=== PATIENT | male | born 1955 | race Caucasian/White ===

== ENCOUNTER 2022-06-09 08:31 | Emergency (ER) | payer SELFPAY ==
[2022-06-09 09:33] LABS: #Lymphocytes 0.6 thou/uL (1.20-3.40); #Monocytes 0.6 thou/uL (0.11-0.59); #Neutrophils 5.8 thou/uL (1.40-6.50); %Basophils 0.1 % (0.0-1.0); %Eosinophils 0.5 % (0.0-10.0); %Lymphocytes 8.1 % (21.0-51.0); %Monocytes 8.5 % (0.0-10.0); %Neutrophils 82.8 % (42.0-75.0); Mean Corpuscular HGB CONC 31.9 g/dL (32.0-36.0); Mean Corpuscular Hemoglobin 34.9 pg (27.0-31.0); Mean Platelet Volume 6.3 fL (7.4-10.4); Platelet Count 321 10x3/uL (130-400); RBC Distribution Width 15.3 % (11.5-14.5); Red Blood Cell (RBC) Count 3.15 mill/uL (4.70-6.10)
[2022-06-09 09:49] LABS: ALT (SGPT) 16 U/L (8-55); AST (SGOT) 18 U/L (5-34); Albumin 2.8 g/dL (3.4-4.8); Alkaline Phosphatase 90 U/L (40-110); Anion Gap 13 mmol/L (10-20); BUN (Urea Nitrogen) 11 mg/dL (8.4-25.7); Bilirubin, Total 0.5 mg/dL (0.2-1.2); Calc. Creatinine Clearance 0 mL/min (70-130); Calcium 9.5 mg/dL (7.8-10.44); Carbon Dioxide 26 mmol/L (23-31); Chloride 106 mmol/L (98-107); Estimated GFR 98; Globulin 4.4 g/dL (2.4-3.5); Glucose 82 mg/dL (80-115); Potassium 3.9 mmol/L (3.5-5.1); Protein, Total 7.2 g/dL (5.8-8.1); Sodium 141 mmol/L (136-145)
[2022-06-09 10:34] LABS: MDiff Complete? YES; Macrocytosis SLIGHT = 6-15 cells (100X) (0-5/hpf); Platelet Morphology Comment Appears Adequate; Polychromasia SLIGHT = 2-3 cells (100X) (0-2/hpf)
[2022-06-09 11:00] LABS: SARS-CoV-2 NAA Rapid Test Not Detected (NotDetected)
[2022-06-09 11:42] LABS: Free T4 (Free Thyroxine) 0.59 ng/dL (0.70-1.48)
== END 2022-06-09 11:39 | disposition home or self-care (01) ==
LOC: ERS 08:31 → EDBD 08:31 → ERS 11:39
DX: J18.9 Pneumonia, unspecified organism (principal); Z20.822 Contact with and (suspected) exposure to COVID-19
CPT/HCPCS: 36415; 71045; 80053; 83605; 84439; 84443; 84481; 84484; 85025; 93005; 94760

== ENCOUNTER 2022-06-16 12:26 | Emergency (ER) | payer OTHER, MEDICARE, MEDICAID | END 2022-06-16 15:16 | disposition home or self-care (01) | LOC: ERS 12:26 | DX: S00.12XA Contusion of left eyelid and periocular area, initial encounter (principal); E03.9 Hypothyroidism, unspecified; E11.22 Type 2 diabetes mellitus with diabetic chronic kidney disease; N18.9 Chronic kidney disease, unspecified; E11.51 Type 2 diabetes mellitus with diabetic peripheral angiopathy without gangrene; W19.XXXA Unspecified fall, initial encounter | CPT/HCPCS: 70450 ==